=== PATIENT | male | born 1980 | race Native Hawaiian/Other Pacific Islander ===

== ENCOUNTER 2016-07-17 07:28 | Day surgery (SDC) | payer BC ==
[2016-07-10 09:06] LABS: HEMATOCRIT 47.9 % (37.9-51.0); HEMOGLOBIN 16.4 g/dL (13.5-17.0); HGB HCT DIFFERENCE 1.3; MEAN CORPUSCULAR HGB CONC 34.2 g/dL (32.0-36.0); MEAN CORPUSCULAR VOLUME 88 fl (80-97); RED BLOOD COUNT 5.45 10^6/uL (4.35-5.55); RED CELL DISTRIBUTION WIDTH 13.9 % (11.5-14.0); WHITE BLOOD COUNT 5.3 10^3/uL (4.0-10.5)
[2016-07-10 09:24] LABS: ANION GAP 10 (5-19); BLOOD UREA NITROGEN 14 mg/dL (7-20); CALCIUM 9.6 mg/dL (8.4-10.2); CARBON DIOXIDE 29 mmol/L (22-30); CHLORIDE 104 mmol/L (98-107); CREATININE RESULT 0.85 mg/dL (0.52-1.25); GLUCOSE 155 mg/dL (75-110); SODIUM 142.8 mmol/L (137-145)
[2016-07-10 09:26] LABS: POTASSIUM 4.2 mmol/L (3.6-5.0)
[~2016-07-17 07:28] MED LIST: ACETAMINOPHEN 325 MG TABLET PO PRN; CEFAZOLIN 2 GM/D5W RTU 2 GM/50 ML RTUPB IV PRN; LACTATED RINGERS 1000 ML IV PRN; LIDOCAINE 0.5% INJ-PF (5 MG/ML) 50 ML SDV SUBCUT PRN
[2016-07-17] MEDS ORDERED: BUPIVACAINE HCL 0.25 % INJ/PF (2.5 MG/1 ML) 30 ML VIAL ONE (08:41)
[2016-07-17] MEDS ORDERED: FENTANYL CITRATE INJ/PF 250 MCG/5 ML AMPULE ONE (11:03)
[2016-07-17] MEDS ORDERED: MIDAZOLAM 2 MG/2 ML INJ ONE (11:04)
[2016-07-17] MEDS ORDERED: MORPHINE SULFATE 10 MG/ML INJ ONE (11:04)
[2016-07-17] MEDS ORDERED: ACETAMINOPHEN 100 ML IV ONE (11:04)
[2016-07-17] MEDS ORDERED: PROPOFOL INJ 200 MG/20 ML VIAL IV ONE (11:04)
[2016-07-17] MEDS ORDERED: MORPHINE SULFATE 10 MG/ML INJ IV PRN ×2 (12:34→13:32)
[2016-07-17] MEDS ORDERED: DIPHENHYDRAMINE HCL 50 MG/ML VIAL IV PRN (12:34)
[2016-07-17] MEDS ORDERED: PROMETHAZINE HCL INJ 25 MG/1 ML VIAL IV PRN ×2 (12:34)
[2016-07-17] MEDS ORDERED: FENTANYL CITRATE INJ/PF 100 MCG/2 ML AMPUL IV PRN ×3 (12:34)
[2016-07-17] MEDS ORDERED: OXYCODONE-ACETAMINOPHEN 5-325 MG TABLET PO PRN ×3 (12:34→13:32)
[2016-07-17] MEDS ORDERED: MEPERIDINE HCL/PF INJ 25 MG/1 ML DISP.SYRIN IV PRN (12:34)
[2016-07-17] MEDS ORDERED: RINGERS SOLUTION,LACTATED 1,000 ML IV PRN (13:32)
[2016-07-17] MEDS ORDERED: ONDANSETRON HCL INJ/PF 4 MG/2 ML SDV IV PRN (13:32)
--- NOTE | 2016-07-17 13:32 | PDOC DISCHARGE SUMMARY ---
Discharge Summary (SDC) - Discharge Final Diagnosis: Left inguinal hernia Date of Surgery: 07/17/16 Discharge Date: 07/17/16 Condition: Good Treatment or Instructions: Left inguinal hernia repair with mesh. May discharge patient home and met discharge criteria. Follow-up with me in 2 weeks. Stay active but avoid strenuous activity. May shower tomorrow night. Prescriptions: Oxycodone HCl/Acetaminophen [Percocet 5-325 mg Tablet] 1 tab PO ASDIR PRN #35 tablet PRN Reason: Discharge Diet: As Tolerated Discharge Activity: Activity As Tolerated - Stay active but avoid strenuous activity. Report the Following to Your Physician Immediately: Fever over 101 Degrees, Unusual Bleeding, Redness, Drainage-Foul Smelling
[2016-07-17] MEDS ORDERED: ROCURONIUM BROMIDE INJ 50 MG/5 ML VIAL IV ONE (13:51)
[2016-07-17] MEDS ORDERED: LIDOCAINE 2% INJ-PF (20 MG/ML) 10 ML AMPUL ONE (13:51)
[2016-07-17] MEDS ORDERED: METOCLOPRAMIDE HCL INJ/PF 10 MG/2 ML SDV ONE (13:51)
[2016-07-17] MEDS ORDERED: ONDANSETRON HCL INJ/PF 4 MG/2 ML SDV ONE (13:51)
[2016-07-17] MEDS ORDERED: GLYCOPYRROLATE INJ 0.4 MG/2 ML VIAL ONE (13:51)
[2016-07-17] MEDS ORDERED: NEOSTIGMINE METHYLSULFATE 10 MG/10 ML VIAL ONE (13:51)
[2016-07-17] MEDS ORDERED: SUCCINYLCHOLINE CHLORIDE INJ 200 MG/10 ML VIAL ONE (13:51)
[2016-07-17 15:27] VITALS: BP 125/80
--- NOTE | 2016-07-17 19:51 | Operative Report ---
Operative Report DATE OF SURGERY: 07/17/16 PREOPERATIVE DIAGNOSIS: Left inguinal hernia POSTOPERATIVE DIAGNOSIS: Left direct inguinal hernia OPERATION: Left inguinal hernia repair with mesh SURGEON: SANJUANITA MARK ANESTHESIA: GA TISSUE REMOVED OR ALTERED: Cord lipoma removed but not submitted to pathology COMPLICATIONS: None ESTIMATED BLOOD LOSS: Minimal INTRAOPERATIVE FINDINGS: Large direct inguinal hernia PROCEDURE: Informed consent was obtained. Patient was brought to the operating room and placed on the operating room table in the supine position. After satisfactory induction of general anesthesia, patient's left groin was prepped and draped in the usual sterile fashion. Local anesthetic was administered and a transverse left groin incision was made. Dissection was carried down and the external oblique was opened allowing us fascial fibers thus opening the external inguinal ring. The cord was mobilized at the pubic tubercle. Dissection revealed a large direct inguinal hernia that was firmly adhered to the cord structures this direct inguinal hernia was dissected away and it was clearly medial to the inferior epigastric vessels. The herniation was tucked back into the preperitoneal space and kept in place using mattressing Ethibond sutures. Dissection at the anterior aspect of the cord revealed a small cord lipoma but no indirect inguinal hernia sac the cord lipoma was clamped divided excised and tied. Space was created for the mesh. The iliohypogastric nerve would have been in the way of the repair therefore he was taken by clamping dividing and tying. Mesh repair was then performed with [employer] pro-software writer mesh the sling ends were brought back together in a sling-like configuration thus re-creating the internal inguinal ring and allowing the egress of the cord structures. The mesh laid flat with excellent coverage. Single fixation suture was placed at the pubic tubercle. Hemostasis appeared excellent. The external oblique was closed over the repair and the cord structures using running Vicryl suture. Wallace's fascia was closed with interrupted Vicryl sutures. Skin was closed with subcuticular running Monocryl suture. Marcaine was injected at the operative site. Patient tolerated procedure well with no apparent complications and was taken to the recovery area in stable condition.
== END 2016-07-17 15:35 | disposition home or self-care (01) ==
LOC: OROUT 07:28
PROVIDERS: ATTEND Surgery
PROC: 0YU60JZ Supplement Left Inguinal Region with Synthetic Substitute, Open Approach (ICD-10-PCS; principal; 2016-07-17 11:30)
DX: K40.90 Unilateral inguinal hernia, without obstruction or gangrene, not specified as recurrent (principal); F17.210 Nicotine dependence, cigarettes, uncomplicated; E66.9 Obesity, unspecified; Z68.38 Body mass index [BMI] 38.0-38.9, adult
CPT/HCPCS: 36415; 85027; 80048; 49505; C1781; J2250; J3490 ×2; J3010; J2765; J2270; J0330; J2405; J2704; J0690; J0131; 830